=== PATIENT | female | born 1980 | race Caucasian/White ===

== ENCOUNTER → 2018-02-27 | Outpatient (CLI) | payer BC ==
[2018-02-27 12:15] LABS: Basophils # (A) 0.1 k/uL (0-0.2); Basophils % (A) 1 %; Eosinophils # (A) 0.2 k/uL (0-0.7); Eosinophils % (A) 2 %; HGB 12.5 gm/dL (11.4-16.0); Lymphocytes # (A) 2.9 k/uL (1.0-4.8); Lymphocytes % (A) 30 %; MCHC 31.3 g/dL (31.0-37.0); MCV 86.1 fL (80.0-100.0); Monocytes # (A) 0.5 k/uL (0-1.0); Monocytes % (A) 5 %; Neutrophils # (A) 5.9 k/uL (1.3-7.7); Neutrophils % (A) 61 %; Platelet Count 215 k/uL (150-450); RBC 4.65 m/uL (3.80-5.40); RDW 12.9 % (11.5-15.5); WBC 9.7 k/uL (3.8-10.6)
== END | disposition home or self-care (01) ==
LOC: LABPAT 11:12
PROVIDERS: ATTEND Obstetrics & Gynecology
DX: Z01.812 Encounter for preprocedural laboratory examination (principal)
CPT/HCPCS: 36415; 85025

== ENCOUNTER 2018-03-02 05:57 | Day surgery (SDC) | payer BC ==
[2018-02-23 14:15] VITALS: BMI 25.0
--- NOTE | 2018-03-01 07:21 | P.HPOB ---
History of Present Illness H&P Date: 03/01/18 Chief Complaint: Menorrhagia. This patient is a pleasant 37-year-old 4 para 3 female who presented to me requesting endometrial ablation secondary to long-standing menorrhagia. Patient has a many year history of menorrhagia and evaluation has included a pelvic ultrasound which was normal. Patient at this time would like to proceed with an endometrial ablation for treatment. Her has had a vasectomy for control. Review of Systems Constitutional: Denies chills, Denies fever Genitourinary: Reports menorrhagia Menstruation: Reports as per HPI Past Medical History Past Medical History: Musculoskeletal Disorder Additional Past Medical History / Comment(s): LOWER BACK PAIN. irregular/heavy menses History of Any Multi-Drug Resistant Organisms: None Reported Past Surgical History: Back Surgery, Tonsillectomy Additional Past Surgical History / Comment(s): PARTIAL DISCECTOMY 06/16/08. PARTIAL LAMINECTOMY 05/2013. SINUS SURGERY-REMOVAL OF NASAL POLYPS. pain clinic procedures Past Anesthesia/Blood Transfusion Reactions: Motion Sickness, Postoperative Nausea & Vomiting (PONV) Past Psychological History: No Psychological Hx Reported Smoking Status: Never smoker Past Alcohol Use History: None Reported Past Drug Use History: None Reported - Past Family History Mother Family Medical History: No Reported History Medications and Allergies Home Medications Medication Instructions Recorded Confirmed Type No Known Home Medications 02/23/18 02/23/18 History Allergies Allergy/AdvReac Type Severity Reaction Status Date / Time minocycline [Minocycline] Allergy Rash/Hives Verified 02/23/18 14:12 Penicillins Allergy Rash/Hives Verified 02/23/18 14:12 Exam - OBG Physical Exam Abdomen: bowel sounds normal, no diffuse tenderness, no bruit present, no guarding noted, no hepatomegaly, no splenomegaly, no mass Vulva: both: normal Vagina: normal moisture, no discharge Cervix: no lesion, no discharge Uterus: normal size, normal contour Results Patient has had a normal pelvic ultrasound in the recent past. Assessment and Plan Assessment: This is a pleasant 37-year-old 4 para 3 female with long-standing menorrhagia requesting endometrial ablation. Plan is hysteroscopy, D&C, and NovaSure endometrial ablation. I've had a long discussion with Debo about this procedure and risks including risk of infection, bleeding, possible uterine perforation, and/or thermal injury. All the patient's questions are answered and a written consent was obtained. (1) Menorrhagia Status: Chronic Code(s): N92.0 - EXCESSIVE AND FREQUENT MENSTRUATION WITH REGULAR CYCLE SNOMED Code(s): 262224828
[~2018-03-02 05:57] MED LIST: DEXAMETHASONE SOD PHOSPHATE 10 MG/ML 1 ML VIAL IV ONE; HYDROmorphone 0.5 MG/0.5 ML SYRINGE IVP PRN; LACTATED RINGERS 1,000 ML IV SCH; MIDAZOLAM 2 MG/2 ML VIAL IV PRN; ONDANSETRON 4 MG/2 ML VIAL IVP ONE; Pre Op ABX Message 1 EACH MISC MISCELLANE ONE; SCOPOLAMINE 1.5MG/72HR PATCH TRANSDERM ONE
[2018-03-02] MEDS ORDERED: LIDOCAINE 1% 20 ML VIAL (10MG/ML) FOR IV START INTRADERMA ONE (06:21)
[2018-03-02] MEDS ORDERED: MIDAZOLAM 2 MG/2 ML VIAL ONE (07:22)
[2018-03-02] MEDS ORDERED: KETOROLAC 30 MG/ML 1 ML VIAL ONE (07:22)
[2018-03-02] MEDS ORDERED: LIDOCAINE 1% INJ 10MG/ML (20 ML MDV) ONE (07:22)
[2018-03-02] MEDS ORDERED: PROPOFOL 10 MG/ML 20 ML VIAL IV ONE (07:22)
[2018-03-02] MEDS ORDERED: fentaNYL (PF) 50 MCG/ML 2 ML AMP ONE (07:22)
[2018-03-02] MEDS ORDERED: IV FLUID CONTINUATION 1,000 ML IV ONE (07:57)
--- NOTE | 2018-03-02 07:57 | P.OP ---
Date of Procedure: 03/02/18 Preoperative Diagnosis: Menorrhagia Postoperative Diagnosis: Same Procedure(s) Performed: #1: Hysteroscopy. #2: Dilation and curettage. #3: NovaSure endometrial ablation Anesthesia: MAC Surgeon: Douglas Shepard Estimated Blood Loss (ml): 10 Urine output (ml): 25 Pathology: other (Uterine curettings) Condition: stable Disposition: PACU Indications for Procedure: Please see dictated H&P for intimate details of this patient's admission. Brief summary this pleasant 37-year-old female with long-standing menorrhagia requesting endometrial ablation for treatment. Patient understands this surgery and risks and risks of infection, bleeding, possible uterine perforation , and/or thermal injury. All the patient's questions are answered and a written consent is obtained. Operative Findings: This patient had a normal-appearing endometrial cavity. Description of Procedure: This patient is taken to the operating room where she is laid in the supine position. She subsequent undergoes general mask anesthesia without incident. With an adequate level of anesthesia she's placed in dorsal lithotomy position. She has a vaginal perineal prep and drape. Examination under anesthesia shows a mid position uterus. I drain the bladder for 25 mL of clear urine. Weighted speculum was placed in the posterior vagina. The anterior lip of the cervix is then grasped with an Allis clamp. Uterus is gently sounded to 8 cm. Serial dilation is then done to allow the hysteroscope easily and the uterine cavity. Hysteroscopy is performed and the endometrial cavity is measured to be 5.5 cm in length. No intrauterine growths are noted. The hysteroscope was then removed. Cervix is then dilated more to allow a small curette easily uterine cavity a gentle but thorough 4 quadrant curettage is then done. NovaSure device is then opened. It is seated in place and opens up to a width of 4.5 cm and a length of 5.5 cm. After passing the cavity integrity test, it is enabled at 136 W setting for 61 seconds. The device is then removed and appears to be intact. Hysteroscopy again is performed and the cavity appears to be completely ablated up to the endocervix. With this completed the procedure is ended. Allis clamp and weighted speculum was removed. All counts correct 3. There are no complications. Patient is awakened from anesthesia and taken recovery room satisfactory condition.
[2018-03-02 08:12] VITALS: TEMP 97
[2018-03-02 09:08] VITALS: RESP 16
[2018-03-02 09:24] VITALS: BP 132/88; PULSE 92
== END 2018-03-02 09:51 | disposition home or self-care (01) ==
LOC: OR 05:57
PROVIDERS: ATTEND Obstetrics & Gynecology
DX: N92.0 Excessive and frequent menstruation with regular cycle (principal); N85.9 Noninflammatory disorder of uterus, unspecified; M54.5 Low back pain; Z88.0 Allergy status to penicillin; Z88.1 Allergy status to other antibiotic agents; Z79.1 Long term (current) use of non-steroidal anti-inflammatories (NSAID)
CPT/HCPCS: 58563; 81025; 88305; J2250; J1100; J2405; J2001; J3010; J1885; J2704